=== PATIENT | female | born 1965 | race Caucasian/White ===

== ENCOUNTER → 2019-03-11 09:28 | Outpatient (CLI) | payer MEDICAID ==
[2019-03-11 11:22] LABS: BASOPHILS 0.2 % (0-2); EOSINOPHILS 1.7 % (0-7); HEMATOCRIT 40.8 % (36.0-48.0); HEMOGLOBIN 13.4 g/dL (12-16); IMMATURE GRANULOCYTES 0.3 % (0-5); LYMPHOCYTES 15.9 % (15-50); MCH 30.9 pg (26.0-34.0); MCHC 32.8 g/dL (31.0-37.0); MCV 94.2 fL (80.0-100.0); MEAN PLATELET VOLUME 9.5 fL (7.4-10.4); NEUTROPHILS 73.9 % (40-80); PLATELET COUNT 271 10x3/uL (130-400); RBC 4.33 10x6/uL (4.00-5.40); RDW 14.7 % (11.5-14.5)
== END | disposition home or self-care (01) ==
LOC: D.ECHO 09:28 → D.RT 11:00
PROVIDERS: ATTEND Internal Medicine Pulmonary Disease
DX: J44.9 Chronic obstructive pulmonary disease, unspecified (principal); R06.00 Dyspnea, unspecified